=== PATIENT | male | born 1980 ===

== ENCOUNTER → 2017-07-29 | Outpatient (REF) | payer SELFPAY ==
[2017-07-29 14:13] LABS: SEMEN APPEARANCE OPAQUE (OPAQUE); SEMEN VISCOSITY LIQUID (LIQUID); SEMEN VOLUME 4.2 ml (4.0-5.0)
[2017-07-29 14:14] LABS: % NORMAL FORMS 6 % (>=4); IMMOTILITY 53 %; NON PROGRESSIVE MOTILITY (c) 15 %; PROGRESSIVE MOTILITY (a) 32 % (>=32); SPERM ABNORMAL FORMS WBC'S NOTED; SPERM CONCENTRATION 40.5 M/ml (>=15.0); SPERM# 170.1 M/Ejac (>=39); TOTAL MOTILITY 47 % (>=40); TOTAL PROGRESSIVE SPERM 54.5 M/Ejac.; WBC CONCENTRATION <=1 M/ml (<=1 M/ml)
== END ==
LOC: M LAB REF 14:11
DX: N46.9 Male infertility, unspecified (principal)